=== PATIENT | female | born 1950 | race Caucasian/White ===

== ENCOUNTER → 2023-08-19 08:03 | Outpatient (REF) | payer MEDICARE, OTHER, SELFPAY | LOC: WDC 08:03 | PROVIDERS: ATTENDING PHYSICIAN Obstetrics & Gynecology Gynecology; FAMILY PHYSICIAN Family Medicine; REFERRING PHYSICIAN Internal Medicine | DX: I48.0 Paroxysmal atrial fibrillation (principal); I34.0 Nonrheumatic mitral (valve) insufficiency; N63.10 Unspecified lump in the right breast, unspecified quadrant | CPT/HCPCS: 76642; 77061; 77065; 93306 ==

== ENCOUNTER → 2023-11-19 09:56 | Outpatient (REF) | payer MEDICARE, OTHER, SELFPAY | LOC: WDC 09:56 | PROVIDERS: ATTENDING PHYSICIAN Obstetrics & Gynecology Gynecology; FAMILY PHYSICIAN Family Medicine | DX: R92.2 Inconclusive mammogram (principal) | CPT/HCPCS: 76641 ==

== ENCOUNTER → 2023-12-22 15:38 | Outpatient (REF) | payer MEDICARE, OTHER, SELFPAY | LOC: PAVMRI 15:38 | PROVIDERS: ATTENDING PHYSICIAN Pain Medicine Interventional Pain Medicine; FAMILY PHYSICIAN Family Medicine | DX: M54.16 Radiculopathy, lumbar region (principal) | CPT/HCPCS: 72148 ==

== ENCOUNTER → 2024-03-08 11:12 | Outpatient (REF) | payer MEDICARE, OTHER, SELFPAY | LOC: WDC 11:12 | PROVIDERS: ATTENDING PHYSICIAN Obstetrics & Gynecology Gynecology; FAMILY PHYSICIAN Family Medicine | DX: Z12.31 Encounter for screening mammogram for malignant neoplasm of breast (principal) | CPT/HCPCS: 77063; 77067 ==

== ENCOUNTER → 2024-10-11 08:29 | Outpatient (REF) | payer MEDICARE, OTHER, SELFPAY | LOC: RAD 08:29 | PROVIDERS: ATTENDING PHYSICIAN Family Medicine | DX: Z13.820 Encounter for screening for osteoporosis (principal); Z78.0 Asymptomatic menopausal state | CPT/HCPCS: 77080 ==

== ENCOUNTER → 2024-11-08 10:54 | Outpatient (REF) | payer MEDICARE, OTHER, SELFPAY | LOC: WDC 10:54 | PROVIDERS: ATTENDING PHYSICIAN Obstetrics & Gynecology Gynecology; FAMILY PHYSICIAN Family Medicine | DX: R92.2 Inconclusive mammogram (principal) | CPT/HCPCS: 76641 ==